=== PATIENT | female | born 1965 | race Caucasian/White ===

== ENCOUNTER 2016-07-31 17:08 | Emergency (ER) | payer MEDICAID ==
[~2016-07-31] VITALS: Ht 152.4 cm; Wt 55.3 kg
--- NOTE | 2016-07-31 19:12 | NUR ---
PT WALKED INTO ER, PT REPORTS SHE HAD BEEN GOING TO SEE THE DOCTOR WHO PRESCRIBED COUGH MEDICINE, BUT THAT DRY COUGH KEPT RECURRING. PT IS ALERT, ORIENTED X 4, NO RESP DISTRESS NOTED OR REPORTED UPON ASSESSMENT... MD AT BEDSIDE...
[2016-07-31 19:34] LABS: BASOPHILS % (AUTO) 0.6 % (0.0-2.0); EOSINOPHILS # (AUTO) 0.2 K/uL (0.0-0.7); EOSINOPHILS % (AUTO) 2.9 % (0.0-7.0); HEMATOCRIT 41.1 % (37-47); HEMOGLOBIN 13.8 G/DL (12.0-16.0); LYMPHOCYTES # (AUTO) 2.2 K/UL (0.8-4.8); LYMPHOCYTES % (AUTO) 32.2 % (20.5-51.5); MEAN CORPUSCULAR HEMOGLOBIN 29.9 UUG (27.0-31.0); MEAN CORPUSCULAR HGB CONC 33 g/dL (32.0-37.0); MEAN CORPUSCULAR VOLUME 89.4 FL (81.0-99.0); MONOCYTES # (AUTO) 0.5 K/uL (2.0-10.0); NEUTROPHILS # (AUTO) 3.8 K/UL (1.8-8.9); NEUTROPHILS % (AUTO) 56.3 % (38.5-71.5); PLATELET COUNT (AUTO) 239 K/UL (150-450); RED CELL DISTRIBUTION WIDTH 12.6 % (11.5-14.5); WHITE BLOOD COUNT (AUTO) 6.7 K/UL (4.0-11.2)
--- NOTE | 2016-07-31 19:39 | NUR ---
BREAD ICER AT BEDSIDE, TRANSFERRED PT TO CT SCAN BY WHEELCHAIR...
[2016-07-31 19:45] LABS: TROPONIN I 0.023 ng/mL (0.00-0.056)
[2016-07-31 20:00] LABS: LACTIC ACID 0.4 mmol/L (0.4-2.0)
[2016-07-31 20:16] LABS: CALCIUM 9.4 mg/dL (8.5-10.1); CARBON DIOXIDE 28 mmol/L (21-32); CHLORIDE 104 mmol/L (98-107); GFR > 130 mL/min (>60); GLUCOSE 92 mg/dL (74-106); POTASSIUM 3.7 mmol/L (3.5-5.1); SODIUM SERUM 141 mmol/L (136-145); UREA NITROGEN, BLOOD 14 mg/dL (7-18)
[2016-07-31 20:19] LABS: CREATININE 0.5 mg/dL (0.6-1.3)
[2016-07-31 20:28] LABS: ALANINE AMINOTRANSFERASE 19 U/L (14-59); ALBUMIN 4.1 g/dL (3.4-5.0); ALKALINE PHOSPHATASE 105 U/L (50-136); ASPARTATE AMINOTRANSFERASE 21 U/L (15-37); BILIRUBIN,DIRECT 0.1 mg/dL (0.0-0.2); BILIRUBIN,TOTAL 0.2 mg/dL (0.2-1.0); NT-PRO BNP 60 pg/mL (0-125); TOTAL PROTEIN, SERUM 8.7 g/dL (6.4-8.2)
--- NOTE | 2016-07-31 21:07 | NUR ---
Patient discharged to home in stable conditon. Written and verbal after care instructions given. Patient verbalizes understanding of instructions. pt walked out of ER unassisted with belongings at side...
[2016-07-31 21:09] VITALS: BP 127/91
== END 2016-07-31 21:09 | disposition home or self-care (01) ==
LOC: ER 17:10
DX: R05 Cough (principal); R42 Dizziness and giddiness
CPT/HCPCS: 36415; 70450; 71010; 80048; 80076; 83605; 83880; 84484; 85025; 85379; 85730; 87040 ×2; 93005; 99285; A4663; 70030-TC